=== PATIENT | female | born 1950 | race Caucasian/White ===

== ENCOUNTER 2021-06-18 05:48 | Observation (INO) | payer MEDICARE ==
[2021-06-13 09:29] VITALS: BMI 57.8
[2021-06-18 06:36] LABS: Hemoglobin 13.3 g/dL (12.0-15.5)
[2021-06-18] MEDS ORDERED: Lidocaine 1% MPF 2 ML VIAL ONE (06:39)
[2021-06-18] MEDS ORDERED: Lidocaine 1% w/Epinephrine 1:100K 20 ML VIAL ONE (06:50)
[2021-06-18 07:03] LABS: Anion Gap 19 mmol/L (10-20); BUN (Urea Nitrogen) 29 mg/dL (9.8-20.1); Calc. Creatinine Clearance 96 mL/min (70-130); Carbon Dioxide 22 mmol/L (23-31); Chloride 105 mmol/L (98-107); Glucose 132 mg/dL (80-115); Potassium 3.6 mmol/L (3.5-5.1); Sodium 142 mmol/L (136-145)
[2021-06-18] MEDS ORDERED: PROPOFOL 20 ML ONE (07:05)
[2021-06-18] MEDS ORDERED: Midazolam HCl 2 mg/2 ml Vial ONE (07:05)
[2021-06-18] MEDS ORDERED: Fentanyl 100 MCG/2 ML VIAL ONE ×4 (07:05→10:20)
[2021-06-18] MEDS ORDERED: Dexamethasone 20 MG/5 ML VIAL ONE (07:06)
[2021-06-18] MEDS ORDERED: Rocuronium Bromide 10 MG/ML (10ML VIAL) ONE (07:06)
[2021-06-18] MEDS ORDERED: Lidocaine 1% PF 5 ML VIAL ONE (07:06)
[2021-06-18] MEDS ORDERED: Ondansetron PF 4 MG/2 ML Vial ONE (07:06)
[2021-06-18] MEDS ORDERED: Acetaminophen 325 MG TAB PO PRN (07:08)
[2021-06-18] MEDS ORDERED: Ondansetron ODT 4 MG TAB PO PRN (07:08)
[2021-06-18] MEDS ORDERED: CEFAZOLIN 1 GM VIAL ONE (07:09)
[2021-06-18] MEDS ORDERED: PHENYLEPHRINE-NS 100 MCG/ML 10 ML SYRINGE ONE (07:28)
[2021-06-18] MEDS ORDERED: Allopurinol 100 MG TAB PO SCH (09:00)
[2021-06-18] MEDS ORDERED: Dextrose 50% Abboject 50 ML SYRINGE IVP PRN (18:00)
[2021-06-18] MEDS ORDERED: Dextrose 5% in Water 1,000 ML IV PRN (18:00)
[2021-06-18] MEDS: Mometasone/Formoterol 200/5 60 PUFF INH SCH (19:25)
[2021-06-18] MEDS: Ipratropium Bromide 2.5 ml Neb NEB SCH (19:25)
[2021-06-18] MEDS: Insulin Regular 300 UNITS/3 ML VIAL SC PRN (20:42)
[2021-06-18] MEDS: Losartan Potassium 50 MG TAB PO SCH (20:42)
[2021-06-18] MEDS: HYDROcodone/Acetaminophen 5/325 mg Tablet PO PRN (22:45)
[2021-06-19] MEDS: HYDROcodone/Acetaminophen 5/325 mg Tablet PO PRN ×2 (03:16→10:11)
[2021-06-19] MEDS: Insulin Regular 300 UNITS/3 ML VIAL SC PRN (05:56)
[2021-06-19] MEDS ORDERED: Levothyroxine Sodium 50 MCG TAB PO SCH (06:00)
[2021-06-19] MEDS ORDERED: Budesonide 0.5 MG/2 ML NEB ONE (07:19)
[2021-06-19 07:51] VITALS: BP 142/65; TEMP 96.5
[2021-06-19] MEDS: Ipratropium Bromide 2.5 ml Neb NEB SCH (08:13)
[2021-06-19] MEDS: Mometasone/Formoterol 200/5 60 PUFF INH SCH (08:13)
[2021-06-19] MEDS ORDERED: Triamterene/Hydrochlorothiazide 37.5 mg/25 mg Tablet PO SCH (09:00)
[2021-06-19] MEDS ORDERED: Empagliflozin 25 MG TAB PO SCH (09:00)
[2021-06-19] MEDS ORDERED: Allopurinol 100 MG TAB PO SCH (09:00)
[2021-06-19] MEDS: Losartan Potassium 50 MG TAB PO SCH (09:23)
== END 2021-06-19 10:05 | disposition home or self-care (01) ==
LOC: CSHSDC 05:48 → INTOOBSV 07:08 → CSHTELE 07:08 → UNDOADMIN 15:02
PROVIDERS: ADMIT Otolaryngology Plastic Surgery within the Head & Neck; ATTEND Otolaryngology Plastic Surgery within the Head & Neck
PROC: 0GTG0ZZ Resection of Left Thyroid Gland Lobe, Open Approach (ICD-10-PCS; principal; 2021-06-18)
DX: E04.2 Nontoxic multinodular goiter (principal); J32.0 Chronic maxillary sinusitis; I10 Essential (primary) hypertension; J31.0 Chronic rhinitis; E11.9 Type 2 diabetes mellitus without complications
CPT/HCPCS: 60220; 80048; 82962 ×2; 85014; 85018; 94640; G0378 ×2; 36415; 36416; 88307; J0690; J1100; J1815; J2250; J2405; J2704; J3010